=== PATIENT | female | born 1995 | race African-American/Black ===

== ENCOUNTER 2021-05-24 16:31 | Emergency (ER) | payer MEDICAID ==
[~2021-05-24] VITALS: Ht 167.6 cm; Wt 89.8 kg
[2021-05-24 16:31] VITALS: BP_SYST 122
--- NOTE | 2021-05-24 16:31 | NUR ---
BROUGHT BACK TO BED #8 AND TRIAGED. REPORT GIVEN TO VIK
--- NOTE | 2021-05-24 16:42 | NUR ---
Placed in room 7 . Placed on personnel monitor, blood pressure machine and pulse oximeter. To gown for exam. Side rails up.
--- NOTE | 2021-05-24 16:45 | NUR ---
Pt walked in to ER with c/o rash to top of right hand. Reports she had blood drawn yesterday in the same arm and the rash started after. V/S stable, no c/o pain or discomfort. No acute distress noted.
--- NOTE | 2021-05-24 17:00 | NUR ---
ARLYN Griffin at bedside examining patient.
[2021-05-24] MEDS ORDERED: HYDC2.5% TP (18:13)
[2021-05-24] MEDS ORDERED: DIPH25CA83 PO (18:13)
[2021-05-24] MEDS ORDERED: [UNRECOGNIZED DRUG - CODE] TP (18:13)
--- NOTE | 2021-05-24 18:30 | NUR ---
Patient given written and verbal discharge instructions and verbalizes understanding. ER MD discussed with patient the results and treatment provided. Patient in stable condition. ID arm band removed. Rx of Benadryl, Calamine and Hydrocortisone cream given. Patient educated on pain management and to follow up with PMD. Pain Scale 0. Opportunity for questions provided and answered. Medication side effect fact sheet provided.
[2021-05-24 18:32] VITALS: BP_SYST 122
== END 2021-05-24 18:30 | disposition home or self-care (01) ==
LOC: SED 16:31
DX: L25.9 Unspecified contact dermatitis, unspecified cause (principal); Z79.899 Other long term (current) drug therapy; Z91.018 Allergy to other foods
CPT/HCPCS: 99282